=== PATIENT | male | born 1955 | race Caucasian/White ===

== ENCOUNTER 2020-03-24 06:50 | Observation (INO) | payer BC, OTHER ==
[2020-03-21 15:37] LABS: BASOPHILS # (AUTO) 0.1 (0.0-0.1); BASOPHILS % 1.4 % (0.0-1.0); EOSINOPHILS # (AUTO) 0.3 (0.0-0.4); EOSINOPHILS % 4.8 % (0.0-6.0); HEMATOCRIT 44.4 % (38.2-49.6); HEMOGLOBIN 14.5 g/dL (14.0-18.0); LYMPHOCYTES # (AUTO) 1.3 (1.0-3.2); LYMPHOCYTES % 22.4 % (18.0-39.1); MEAN CORPUSCULAR HEMOGLOBIN 28.4 pg (28-32); MEAN CORPUSCULAR HGB CONC 32.7 g/dL (31-35); MEAN CORPUSCULAR VOLUME 87.1 fL (81-99); MONOCYTES # (AUTO) 0.5 (0.2-0.8); MONOCYTES % 9.3 % (4.4-11.3); NEUTROPHILS # (AUTO) 3.5 (2.1-6.9); NEUTROPHILS % 61.7 % (38.7-80.0); PLATELET COUNT 177 x10e3/uL (140-360); RED CELL DISTRIBUTION WIDTH 12.1 % (11.7-14.4)
[2020-03-21 15:49] LABS: INR 0.85
--- NOTE | 2020-03-21 15:49 | Diagnostic Imaging Report ---
Exam: CHEST 2 VIEWS Date: 03/21/2020 3:46 PM INDICATION: ^[id number] ^[id number] ^PRE-OP Comparison: None FINDINGS: Lines/Tubes:None Lungs:The lungs are well inflated. No focal consolidation or pulmonary edema. Pleura:No pleural effusion. No pneumothorax. Heart/Mediastinum:The cardiomediastinal silhouette is normal in size and contour. Bones/Soft Tissues: No acute osseous abnormality. Mild multilevel degenerative changes of the spine are noted. Upper abdomen: Unremarkable. IMPRESSION: Negative for acute intrathoracic process. Signed by: Tremayne Minor MD on 03/21/2020 3:46 PM
[2020-03-21 15:50] LABS: PARTIAL THROMBOPLASTIN TIME 26.8 seconds (23.8-35.5)
[2020-03-21 15:53] LABS: ANION GAP 12.8 mmol/L (8-16); BLOOD UREA NITROGEN 27 mg/dL (7-26); BUN/CREATININE RATIO 25 (6-25); CALCIUM 9.1 mg/dL (8.4-10.2); CARBON DIOXIDE 28 mmol/L (22-29); CHLORIDE 105 mmol/L (98-107); EST GLOMERULAR FILTRATION RATE > 60 ML/MIN (60-); GLUCOSE 86 mg/dL (74-118); POTASSIUM 4.8 mmol/L (3.5-5.1); SODIUM 141 mmol/L (136-145)
[~2020-03-24] VITALS: Ht 172.7 cm; Wt 72.6 kg
[~2020-03-24 06:50] MED LIST: LIDOCAINE 1% W/EPINEPHRINE 20 ML VIAL ONE; MELOXICAM7.5 MG PO; NORCO 10-325 T1 EACH PO; THROMBIN FOR SOLN 5,000 UNIT VIAL ONE; VANCOMYCIN HCL 1 GM VIAL ONE
[2020-03-24] MEDS ORDERED: IBUPROFEN 800MG/ 200ML 200 ML IV ONE (07:08)
[2020-03-24] MEDS ORDERED: LIDOCAINE HCL (LTA) 4 ML SOLN ONE (07:08)
[2020-03-24] MEDS ORDERED: CEFAZOLIN SOD 1 GM/NS 50ML 100 ML IV ONE (07:22)
[2020-03-24] MEDS ORDERED: ZOLPIDEM TARTRATE 5 MG TAB PO PRN (10:00)
[2020-03-24] MEDS ORDERED: MAGNESIUM/ALUMINUM/SIMETHICONE 30 ML UDC PO PRN (10:00)
[2020-03-24] MEDS ORDERED: HYDROMORPHONE 2MG/ML 2 MG/ML ML IV PRN (10:00)
[2020-03-24] MEDS ORDERED: ONDANSETRON HCL INJ 2MG/ML 2ML 2 MG/ML VIAL IV PRN (10:00)
[2020-03-24] MEDS ORDERED: MORPHINE SULFATE INJ 4 MG/ML INJ 1ML IM PRN (10:00)
[2020-03-24] MEDS ORDERED: PROMETHAZINE HCL (IM) 25 MG/ML VIAL IM PRN (10:00)
[2020-03-24] MEDS ORDERED: OXYCODONE/ACETAMINOPHEN 5-325 1 EACH TABLET PO PRN (10:00)
[2020-03-24] MEDS ORDERED: CARISOPRODOL 350 MG TAB PO PRN (10:00)
[2020-03-24] MEDS ORDERED: CEPACOL SORE THROAT LOZENGES PO PRN (10:00)
[2020-03-24] MEDS ORDERED: ACETAMINOPHEN 325 MG TAB PO PRN (10:00)
--- NOTE | 2020-03-24 10:01 | Diagnostic Imaging Report ---
EXAMINATION: Lumbar spine radiographs - 1 views CLINICAL HISTORY: Right L3-L4 foraminal COMPARISON: None. DISCUSSION: Limited intraoperative single cross table radiograph of the lumbar spine. Linear radiopaque surgical markers overlie the L3 vertebra and L3-L4 intervertebral disc space. No acute osseous abnormality visualized given exam limitations. Multilevel degenerative changes. IMPRESSION: Limited intraoperative cross table radiograph of the lumbar spine with linear radiopaque markers overlying the L3 vertebra and L3-L4 intervertebral disc space. Signed by: Dr. Darinel Bautista M.D. on 03/24/2020 9:58 AM
--- NOTE | 2020-03-24 10:03 | Diagnostic Imaging Report ---
EXAMINATION: Lumbar spine radiographs - 1 views CLINICAL HISTORY: Right L3-L4 foraminal COMPARISON: Intraoperative lumbar spine radiograph performed earlier on the same day (03/24/2020). DISCUSSION: Limited intraoperative single cross table radiograph of the lumbar spine. Linear metallic surgical instrument overlies the posterior spinal elements of L3. No acute osseous abnormality visualized given exam limitations. Multilevel degenerative changes. IMPRESSION: Limited intraoperative cross table radiograph of the lumbar spine with linear metallic surgical instrument overlying the posterior spinal elements of L3. Signed by: Dr. Darinel Bautista M.D. on 03/24/2020 9:59 AM
[2020-03-24 10:55] VITALS: BP 144/86
--- NOTE | 2020-03-24 10:55 | NUR ---
PATIENT RECEIVED FROM PACU. PATIENT FOUND LYING IN BED IN NO ACUTE DISTRESS. PATIENT IS ALERT AND ORIENTED ABLE TO EXPRESS NEEDS. PATIENT DENIES NEEDS. PATIENT WAS ORIENTED TO ROOM, UNIT, AND EQUIPMENT. CALL LIGHT AND BELONGINGS PLACED NEARBY. WILL CONTINUE TO MONITOR.
[2020-03-24] MEDS: LACTATED RINGER'S 1,000 ML IV SCH ×2 (12:01→20:20)
--- NOTE | 2020-03-24 12:11 | Operative Report ---
DATE OF PROCEDURE: 03/24/2020 SURGEON: Kevin Real MD PREOPERATIVE DIAGNOSIS: Right L3-4 foraminal disk herniation with L3 radiculopathy, M51.16. POSTOPERATIVE DIAGNOSIS: Right L3-4 foraminal disk herniation with L3 radiculopathy, M51.16. PROCEDURES: Right L3-4 lateral foraminotomy and microsurgical diskectomy, 52376. ANESTHESIA: General. INDICATIONS: The patient is a 64-year-old man, who presents with a right L3-4 lateral foraminal disk herniation with L3 radiculopathy and was taken to surgery for microsurgical diskectomy through a lateral paramedian approach. PROCEDURE IN DETAIL: After induction of general anesthesia, the patient was placed on the operating table in the prone position over a Melchor frame. Lumbar region was prepped and draped in sterile fashion. A preoperative x-ray was obtained and a small 1-inch paramedian incision was created at L3-4. The lumbar fascia was divided and the right L3 lamina and the region of the pars interarticularis of L3 were exposed. A second x-ray confirmed correct localization. Operating microscope was brought in. Retraction was maintained with expandable Aesculap speculum retractor. A high-speed drill equipped with a 4 mm dayan bur was used to drill the lateral margin of the pars interarticularis of L3 and the superior lateral margin of the inferior articular process and the tip of the superior articular process of L4. The lateral extension of the ligamentum flavum into the L3 neural foramina was resected and the L3 nerve root and ganglion were exposed below the L3 pedicle. The herniated disk material immediately came into view under the L3 nerve root. This was mobilized with a micro ball probe and grasped with a micropituitary rongeur and removed. The ball probe was then moved medially and laterally, and several additional fragments of disk were retrieved and removed until the L3 nerve root was fully decompressed. Meticulous hemostasis was secured. The wound was irrigated and closed with 0 and 2-0 Vicryl sutures and 3-0 Monocryl sutures. The patient was awakened, extubated, and taken to postanesthesia care unit in stable condition. No intraoperative complications were encountered. Estimated blood loss was 10 mL. Kevin Real MD PP/MICHELLE /[id number]
[2020-03-24] MEDS ORDERED: SEVOFLURANE INHAL SOLN 250 ML PEN BTL ONE (14:46)
[2020-03-24] MEDS ORDERED: PROPOFOL IV EMULSION 10 MG/ML 20 ML VIAL ONE (14:46)
[2020-03-24] MEDS ORDERED: LIDOCAINE HCL 2% LOCAL INJ 5 ML SDV VIAL INJ ONE (14:46)
[2020-03-24] MEDS ORDERED: GLYCOPYRROLATE INJ 0.2 MG/ML VIAL ONE (14:46)
[2020-03-24] MEDS ORDERED: LIDOCAINE HCL 2% JELLY 5 ML TUBE ONE (14:46)
[2020-03-24] MEDS ORDERED: ONDANSETRON HCL INJ 2MG/ML 2ML 2 MG/ML VIAL ONE (14:46)
[2020-03-24] MEDS ORDERED: ROCURONIUM BROMIDE 10 MG/ML 5ML VIAL IV ONE (14:46)
[2020-03-24] MEDS ORDERED: NEOSTIGMINE 1 MG/ML 10ML VIAL ONE (14:46)
[2020-03-24] MEDS ORDERED: DEXAMETHASONE SOD PHOS INJ 4 MG/ML VIAL ONE (14:46)
[2020-03-24] MEDS ORDERED: FENTANYL CITRATE/PF 100MCG/2 ML INJ ONE (15:29)
[2020-03-24] MEDS ORDERED: MIDAZOLAM HCL 2 MG/2 ML VIAL ONE (15:29)
[2020-03-24 16:08] VITALS: BP 139/72
[2020-03-24] MEDS: CEFAZOLIN SOD 1 GM/NS 50ML 50 ML IV SCH (16:34)
--- NOTE | 2020-03-24 18:55 | NUR ---
RECEIVED BEDSIDE SHIFT REPORT FROM PREVIOUS NURSE. CALL LIGHT WITHIN REACH. PATIENT ASLEEP IN BED. PATIENT IN NO PAIN OR DISTRESS.
--- NOTE | 2020-03-24 18:59 | NUR ---
PATIENT IS STABLE. SBAR BEDSIDE REPORT GIVEN TO PM SHIFT.
[2020-03-24 20:00] VITALS: BP 134/69
[2020-03-24 21:23] VITALS: BP 134/69
[2020-03-25] VITALS: BP 131/79
[2020-03-25] MEDS: CEFAZOLIN SOD 1 GM/NS 50ML 50 ML IV SCH ×2 (00:50→08:50)
[2020-03-25 04:00] VITALS: BP 122/72
[2020-03-25] MEDS: LACTATED RINGER'S 1,000 ML IV SCH (04:40)
--- NOTE | 2020-03-25 06:49 | NUR ---
GAVE BEDSIDE SHIFT REPORT TO ONCOMING NURSE. CALL LIGHT WITHIN REACH. PATIENT ASLEEP IN BED. SCDS AND TEDS ON PATIENT. HOURLY ROUNDING PERFORMED. IV IS GOOD
--- NOTE | 2020-03-25 06:59 | NUR ---
SBAR BEDSIDE REPORT RECEIVED FROM PM SHIFT RN. PATIENT FOUND LYING IN BED IN NO ACUTE DISTRESS. PATIENT IS AAOX4 AND DENIES FURTHER NEEDS AT THIS TIME. PATIENT WAS EDUCATED ON FALL RISK PRECAUTIONS AND VERBALIZED UNDERSTANDING. CALL LIGHT AND BELONGINGS PLACED NEARBY. WILL CONTINUE TO MONITOR.
[2020-03-25 08:00] VITALS: BP 120/60
[2020-03-25 08:24] VITALS: BP 120/60
--- NOTE | 2020-03-25 09:00 | NUR ---
Pt sleeping soundly and no family present. [employer] left a card describing availability of pasteurizer and instructions on how to contact a pasteurizer. SUGAR [employer]YMAN [employer] Spiritual Care Department O: [phone]
--- NOTE | 2020-03-25 12:02 | NUR ---
PATIENT DISCHARGED HOME VIA PRIVATE VEHICLE. PERIPHERAL IV WAS DISCONTINUED WITHOUT RESISTANCE; CATHETER TIP INTACT. DRY DRESSING APPLIED. PATIENT RECEIVED WRITTEN PRESCRIPTIONS, MD DISCHARGE INSTRUCTIONS, AND EDUCATION MATERIAL. PATIENT VERBALIZED UNDERSTANDING.
== END 2020-03-25 12:04 | disposition home or self-care (01) ==
LOC: OR 06:50 → PACU V 09:48 → MED/SURG 10:55
PROVIDERS: ADMIT Neurological Surgery; ATTEND Neurological Surgery
DX: M51.16 Intervertebral disc disorders with radiculopathy, lumbar region (principal); K21.9 Gastro-esophageal reflux disease without esophagitis; Z01.810 Encounter for preprocedural cardiovascular examination; Z01.812 Encounter for preprocedural laboratory examination; Z01.818 Encounter for other preprocedural examination; Z11.59 Encounter for screening for other viral diseases
CPT/HCPCS: 36415; 63056; 71046; 72020; 80048; 85025; 85610; 85730; 86850 ×2; 86900 ×2; 88304; 93005; G0378 ×2; J0690 ×2; J1100; J2001 ×2; J2250; J2405; J2704; J2710; J3010; J3370; J7121; U0002